=== PATIENT | female | born 1995 | race Caucasian/White ===

== ENCOUNTER 2018-04-06 13:14 | Outpatient (CLI) | payer BC ==
[2018-04-06 13:25] VITALS: BP 135/98
[2018-04-06] MEDS ORDERED: LACTATED RINGERS 0 ML IV ONE (13:30)
--- NOTE | 2018-04-06 13:42 | Diagnostic Imaging Report ---
CLINICAL INDICATION: Patient with chest pressure and abnormal tightness today. EXAM: Portable chest x-ray upright view. COMPARISONS: Chest x-ray dated 05/30/2012. FINDINGS: Lungs/pleura: Lungs are clear. There is no pneumothorax. There is no pleural effusion. Mediastinum: Unremarkable. Pulmonary vasculature: Unremarkable. Heart: Unremarkable. Bones/extrathoracic soft tissue: Unremarkable. IMPRESSION: Unremarkable chest x-ray exam. Dictated by: Dictated on workstation # [id number]
[2018-04-06] MEDS ORDERED: NS IV 1000 ML 1,000 ML IV SCH (13:45)
== END 2018-04-06 15:00 | disposition home or self-care (01) ==
LOC: SDC 13:14
PROVIDERS: ATTEND Nurse Practitioner Family
DX: R50.9 Fever, unspecified (principal); R05 Cough
CPT/HCPCS: 71045